=== PATIENT | female | born 1990 | race American Indian/Alaskan Native ===

== ENCOUNTER 2017-09-19 00:32 | Emergency (ER) | payer MEDICAID ==
[2017-09-19 00:41] VITALS: BP 151/93
[2017-09-19] MEDS ORDERED: REGLAN IV ONE (02:16)
[2017-09-19] MEDS ORDERED: TORADOL IV ONE (02:16)
[2017-09-19] MEDS ORDERED: NACL 0.9% 1000 ML 1,000 ML IV ONE (02:16)
[2017-09-19] MEDS ORDERED: BENADRYL IV ONE (02:16)
--- NOTE | 2017-09-19 02:35 | Emergency Department Report ---
ED Headache HPI - General Chief Complaint: Headache Stated Complaint: HEADACHE X3 DAYS Time Seen by Provider: 09/19/17 02:29 - History of Present Illness Initial Comments: This is a 27-year-old female nontoxic, well nourished in appearance, no acute signs of distress presents to the ED with c/o of acute on chronic intermittent headaches. Patient stated the past 3 days she developed headache and has been taking Motrin with slight relief. Patient describes headache as aching diffusely with level of 8 out of 10. Patient stated that monthly during her menstrual cycle should develop these headaches. Patient denies thunderclap headache or worst headache. Patient denies any neck pain, stiff neck, blurry vision, chest pain, shortness of breath, numbness, tingling, back pain, abdominal pain, chest pain or shortness of breath. Patient denies any recent travels, localized. Patient denies any allergies or significant past medical history. Timing/Duration: episodic Quality: mild, achy Head Injury Location: other (diffuse) Recent Head Trauma: no recent headache/trauma, occasional headaches Associated Symptoms: denies symptoms. denies: confusion, fatigue, facial pain, fever/chills, flushing, loss of consciousness, nausea/vomiting, nasal congestion , nasal drainage, numbness in legs/feet, rash, seizures, sinus infection, stiff neck, vision changes, weakness Allergies/Adverse Reactions: Allergies No Known Allergies Allergy (Verified 05/03/14 04:01) Home Medications: Ambulatory Orders Amoxicillin [Trimox CAP] 500 mg PO Q8H #30 capsule 05/03/14 HYDROcodone/APAP 10-325 [Bath 10/325] 1 each PO Q6HR PRN #16 tablet 05/03/14 Promethazine Dm [Phenergan Dm 6.25/15 mg 5 ml] 5 ml PO Q6H PRN #120 ml 05/03/14 HYDROcodone/APAP 5-325 [Bath 5/325 mg] 1 each PO Q6HR PRN #12 tablet 05/10/14 Naproxen Sodium [Aleve] 220 mg PO Q8H PRN #50 tablet 05/10/14 Doxycycline [Vibramycin CAP] 100 mg PO BID #20 capsule 12/03/14 Ibuprofen [Motrin] 600 mg PO Q8H PRN #40 tablet 12/03/14 metroNIDAZOLE [Flagyl] 500 mg PO BID #20 tablet 12/03/14 Butalb/Acetamin/Caff 50-325-40 [Fioricet] 1 tab PO Q6HR PRN #15 tab 09/19/17 ED Review of Systems ROS: Stated complaint: HEADACHE X3 DAYS Other details as noted in HPI Constitutional: denies: chills, fever Eyes: denies: eye pain, eye discharge, vision change ENT: denies: ear pain, throat pain Respiratory: denies: cough, shortness of breath, wheezing Cardiovascular: denies: chest pain, palpitations Endocrine: no symptoms reported Gastrointestinal: denies: abdominal pain, nausea, diarrhea Genitourinary: denies: urgency, dysuria, discharge Musculoskeletal: denies: back pain, joint swelling, arthralgia Skin: denies: rash, lesions Neurological: headache. denies: weakness, paresthesias Psychiatric: denies: anxiety, depression Hematological/Lymphatic: denies: easy bleeding, easy bruising ED Past Medical Hx - Past Medical History Previous Medical History?: No Additional medical history: ovarian cysts - Surgical History Past Surgical History?: Yes Additional Surgical History: tonsil - Social History Smoking Status: Never Smoker Substance Use Type: None - Medications Home Medications: Home Medications Medication Instructions Recorded Confirmed Last Taken Type Amoxicillin [Trimox CAP] 500 mg PO Q8H #30 capsule 05/03/14 05/10/14 05/07/14 Rx HYDROcodone/APAP 10-325 [Bath 1 each PO Q6HR PRN #16 tablet 05/03/14 05/10/14 05/07/14 Rx 10/325] Promethazine Dm [Phenergan Dm 5 ml PO Q6H PRN #120 ml 05/03/14 05/10/14 Rx 6.25/15 mg 5 ml] HYDROcodone/APAP 5-325 [[place]ath 1 each PO Q6HR PRN #12 tablet 05/10/14 Unknown Rx 5/325 mg] Naproxen Sodium [Aleve] 220 mg PO Q8H PRN #50 tablet 05/10/14 Unknown Rx Doxycycline [Vibramycin CAP] 100 mg PO BID #20 capsule 12/03/14 Unknown Rx Ibuprofen [Motrin] 600 mg PO Q8H PRN #40 tablet 12/03/14 Unknown Rx metroNIDAZOLE [Flagyl] 500 mg PO BID #20 tablet 12/03/14 Unknown Rx Butalb/Acetamin/Caff 50-325-40 1 tab PO Q6HR PRN #15 tab 09/19/17 Unknown Rx [Fioricet] ED Physical Exam - General Limitations: No Limitations General appearance: alert, in no apparent distress - Head Head exam: Present: atraumatic, normocephalic - Eye Eye exam: Present: normal appearance, PERRL, EOMI Pupils: Present: normal accommodation - ENT ENT exam: Present: normal exam, mucous membranes moist - Neck Neck exam: Present: normal inspection, full ROM. Absent: tenderness, meningismus, lymphadenopathy - Respiratory Respiratory exam: Present: normal lung sounds bilaterally. Absent: respiratory distress, wheezes, rales, rhonchi, stridor - Cardiovascular Cardiovascular Exam: Present: regular rate, normal rhythm, normal heart sounds. Absent: bradycardia, tachycardia, irregular rhythm, systolic murmur, diastolic murmur, rubs, gallop - GI/Abdominal GI/Abdominal exam: Present: soft, normal bowel sounds - Extremities Exam Extremities exam: Present: normal inspection, full ROM, normal capillary refill. Absent: calf tenderness - Back Exam Back exam: Present: normal inspection, full ROM - Neurological Exam Neurological exam: Present: alert, oriented X3, CN II-XII intact, normal gait - Expanded Neurological Exam Expanded Patient oriented to: Present: person, place, time Cranial nerves: EOM's Intact: Normal, Gag Reflex: Normal, Facial Sensation: Normal Cerebellar function: Finger to Nose: Normal Upper motor neuron: Pronator Drift: Normal, Babinski Sign: Normal, Sensory Extinction: Normal Sensory exam: Upper Extremity Light Touch: Normal, Upper Extremity Pin Prick: Normal, Upper Extremity Temperature: Normal, UE 2 Point Discrimination: Normal, Lower Extremity Light Touch: Normal, Lower Extremity Pin Prick: Normal, Lower Extremity Temperature: Normal, LE 2 Point Discrimination: Normal Motor strength exam: RUE: 5, LUE: 5, RLE: 5, LLE: 5 Best Eye Response ([place]): (4) open spontaneously Best Motor Response ([place]): (6) obeys commands Best Verbal Response ([place]): (5) oriented Parth Total: 15 - Psychiatric Psychiatric exam: Present: normal affect, normal mood - Skin Skin exam: Present: warm, dry, intact, normal color. Absent: rash ED Course Vital Signs 09/19/17 09/19/17 00:34 00:41 Temperature 98.1 F 98.7 F Pulse Rate 79 79 Respiratory 16 17 Rate Blood Pressure 151/93 151/93 O2 Sat by Pulse 100 100 Oximetry - Reevaluation(s) Reevaluation #1: 09/19/17 02:33 Patient is speaking in full sentences with no signs of distress noted. ED Medical Decision Making - Medical Decision Making This is a 27-year-old female that presents with headache. Patient is stable and was examined by me. Patient is neurologically stable. There is no stiff neck or neck pain. Vital signs are stable. Patient is afebrile. Patient received Benadryl, Reglan, Toradol, and 1 L of normal saline which the patient stated that headache has subsided and resolved. Patient was instructed not to operate any machinery after discharged due to drowsiness of Benadryl. Patient stated that a family member will drive patient home. Patient is discharged with Fioricet. Patient was referred to Follow-up with a primary care/ neurologist doctor in 3-5 days or if symptoms worsen and continue return to emergency room as soon as possible. At time of discharge, the patient does not seem toxic or ill in appearance. No acute signs of distress noted. Patient agrees to discharge treatment plan of care. No further questions noted by the patient. Critical care attestation.: If time is entered above; I have spent that time in minutes in the direct care of this critically ill patient, excluding procedure time. ED Disposition Clinical Impression: Headache Qualifiers: Headache type: unspecified Headache chronicity pattern: episodic headache Intractability: not intractable Qualified Code(s): R51 - Headache Disposition: DC-01 TO HOME OR SELFCARE Is pt being admited?: No Does the pt Need Aspirin: No Condition: Stable Instructions: Acute Headache (ED), Butalbital/Aspirin/Caffeine (By mouth) Additional Instructions: Follow-up with a primary care/neurologist doctor in 3-5 days or if symptoms worsen and continue return to emergency room as soon as possible. Prescriptions: Butalb/Acetamin/Caff 50-325-40 [Fioricet] 1 tab PO Q6HR PRN #15 tab PRN Reason: Headache Referrals: CADY MORROW MD [Primary Care Provider] - 3-5 Days PRIMARY CARE, [Referring] - 3-[address] [facility] [Outside] - 3-5 Days [facility] [Outside] - 3-5 Days Forms: Work/School Release Form(ED)
== END 2017-09-19 03:10 | disposition home or self-care (01) ==
LOC: ED 00:32
DX: R51 Headache (principal); G89.29 Other chronic pain
CPT/HCPCS: 96374; 96375; 99282; J1200; J1885; J2765; J7030

== ENCOUNTER 2019-02-15 23:48 | Emergency (ER) | payer MEDICAID ==
[2019-02-16 00:44] VITALS: BP 141/83
== END 2019-02-16 01:00 | disposition left against medical advice (07) ==
LOC: ED 23:48
DX: K08.89 Other specified disorders of teeth and supporting structures (principal); Z53.21 Procedure and treatment not carried out due to patient leaving prior to being seen by health care provider